=== PATIENT | male | born 1970 | race Caucasian/White ===

== ENCOUNTER 2017-05-14 14:52 | Observation (INO) | payer OTHER ==
[~2017-05-14] VITALS: Ht 182.9 cm; Wt 114.8 kg
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
--- NOTE | ~2017-05-14 | ESTC ---
Cardiac Perfusion Imaging Demographics Patient Name GWEN Gaytan Gender Male Patient Number [id number] Race Visit Number [id number] Ethnicity Corporate ID Room Number G6308 Accession Number [id number] Height 72 inches Date of 1970 Weight 253 pounds Interpreting David Hernandez Date of study 05/15/2017 Physician Supervising /SAMRAP David Hernandez NM Technologist Ileana Read MD Ordering Physician Stress design technician Stress ECG Reading David Hernandez Nurse Clifford Long RN Physician The procedure was explained in detail to the patient. Risks, complications and alternative treatments were reviewed. Written consent was obtained. Medications Reviewed with Patient prior to Procedure. Procedure Procedure Type: Nuclear Stress Test:Exercise, Cardiolite Stress Test Procedure Start time: 05/15/2017 00:00 Indications: Chest pain. Conclusions Summary DTS : 9.4 (Low risk). Normal perfusion imaging. LVEF : 74% Normal WM. Stress Protocols Resting ECG RSR. PVCs. Pre-stress physical exam: Un changed. Predicted HR: 174 bpm ECG Findings No ECG changes suggestive of ischemia. Arrhythmias No new rhythm abnormality. Symptoms No chest pain Back of left upper arm pail felt to be due to the patient holding to the TM very tight.(Does not like treadmills) Stress Interpretation Duration: 9:36 mins. Achieved: 89% MPHR. DP: 24 K. METs: 10.9 No chest pain. Reason for termination: Fatigue and SOB. EKG: No ischemia. No new arrythmias. DTS: 9.4 (Low risk). Imaging Results High risk findings Summed scores - Summed stress score: 12 - Summed rest score: 14 - Summed difference score: -2 Stress ejection Ejection fraction:74 % EDV :76 ml ESV :20 ml Stroke volume :56 ml LV mass :128 gr LV size:Normal Normal LV function Imaging Protocols Rest Stress Isotope:Tc99m Sestamibi IV Isotope: Tc99m Sestamibi IV Isotope dose:15.1 mCi Isotope dose:47.4 mCi Date:05/15/2017 07:30 Date:05/15/2017 09:05 Technique: SPECT Technique: Gated Supine SPECT Supine IV remains in place after procedure. Scan Time:45-60 minutes post Scan Time:45-60 minutes post injection injection Medical History Admission Data Admission date: 05/14/2017 Admission Time: 17:34 Hospital Status: Inpatient. Signatures dtt: Mary Hernandez dtd: 05/15/17 0000 Physician Self Edit
--- NOTE | ~2017-05-14 | ER ---
[facility] 47 Y [address] ROOM: [place] [address] LOCATION: GPCU ADMIT DATE: 05/14/2017 ER/Outpatient Report DISCHARGE DATE: FAMILY PHYSICIAN: PHYSICIAN, NO ATTENDING PHYSICIAN: JIMENA JIMENEZ Time of Arrival: 1452 hours. Time of Evaluation: 1456 hours. CHIEF COMPLAINT: Chest pain. HISTORY OF PRESENT ILLNESS: The patient is a 47-year-old male who presents to the emergency department today with a chief complaint of chest pain. He reports this started 6 hours prior to arrival. The patient reports he had an episode yesterday, it kind of went away on its own, it then came back today. He reports it is a dull type pain in his lower chest, no radiation. No shortness of breath. No diaphoresis. No nausea or vomiting. He reports it is currently 2/10 in severity. PAST MEDICAL HISTORY: Kidney stones. PAST SURGICAL HISTORY: Kidney stones. SOCIAL HISTORY: The patient does use chewing tobacco. Denies any smoking. Denies any alcohol or illicit drug use. ALLERGIES: NO KNOWN DRUG ALLERGIES. MEDICATIONS: None. PRIMARY CARE DOCTOR: None. REVIEW OF SYSTEMS: All systems are reviewed by myself and are negative with the exception of those discussed in HPI and past medical history. PHYSICAL EXAMINATION: [facility]GE: 47 Y [address] ROOM: [place] [address] LOCATION: GPCU ADMIT DATE: 05/14/2017 ER/Outpatient Report DISCHARGE DATE: FAMILY PHYSICIAN: PHYSICIAN, GABBY ATTENDING PHYSICIAN: JIMENA JIMENEZ VITAL SIGNS: Weight 116 kg, blood pressure 163/108, pulse 88, respiratory rate 16, temperature 98.8, and oxygen saturation 96% on room air. GENERAL: The patient is a 47-year-old male, appears stated age, in no acute distress. HEENT: Normocephalic, atraumatic. Pupils are equal, round, and reactive to light. NECK: Supple. There is no nuchal rigidity. CARDIOVASCULAR: Regular rate and rhythm. No murmurs, rubs, or gallops. LUNGS: Clear to auscultation bilaterally. No wheezes, rales, or rhonchi. ABDOMEN: Soft, nontender, and nondistended. No rebound, rigidity, or guarding. MUSCULOSKELETAL: The patient moves all 4 extremities. SKIN: Warm and dry. There are no rashes or lesions noted. LABORATORY DATA AND X-RAYS: EKG is obtained, interpreted by myself at 1517 hours shows sinus rhythm with a rate of 82, normal axis, normal interval. No ST elevation, ST depression, or T-wave inversions. D-dimer is normal. CBC is normal. Coags are normal. ProBNP is normal. CMP is normal. LFTs normal. Magnesium is normal. CK is normal. Troponin is normal. Chest x-ray shows no acute process. A repeat 2- hour EKG is obtained and is interpreted by myself at 1710 hours shows sinus rhythm with a rate of 66, normal axis, normal interval. No ST elevation, ST depression, or T-wave inversions. Positive PVCs. Repeat 2-hour cardiac enzymes are normal. IMPRESSION: 1. Chest pain, rule out acute coronary syndrome. 2. Initial visit. EMERGENCY DEPARTMENT COURSE: The patient brought back to the examination room. Seen and evaluated by myself. IV is established. Laboratory analysis and imaging are obtained as described above. The patient is given 4 baby aspirins orally. He is given sublingual nitroglycerin with resolution of the patient's pain. As we were awaiting the 2-hour cardiac enzymes, the pain returned and his monitor is unchanged. He is given another sublingual nitroglycerin, which does once again resolved the patient's pain. I have discussed results with the patient. With his significant improvement of the chest pain with nitroglycerin, I did recommend admission to the hospital for observation for further evaluation, treatment, and management. The patient is agreeable. I have contacted Dr. Jimenez who does agree to accept the patient for further evaluation, treatment, and management. DISPOSITION: The patient is admitted under the care of the Hospitalist Service in stable PATIENT'S NAME: RISA HIDALGO [facility] AGE: 47 Y [address] ROOM: [address] [place], [place] [address] [facility] ADMIT DATE: 05/14/2017 ER/Outpatient Report DISCHARGE DATE: FAMILY PHYSICIAN: PHYSICIAN, NO ATTENDING PHYSICIAN: JIMENA JIMENEZ condition. DO CABRERA BOWENS/brigitte /[id number] d: 05/14/17 2317 t: 05/15/17 0845, OUTPATIENT REPORT
--- NOTE | ~2017-05-14 | ECHO ---
Transthoracic Echocardiography Report (TTE) Demographics Patient Name RISA HIDALGO Date of Study 05/15/2017 Patient Number [id number] Visit Number [id number] Date of 1970 Room Number G6308 Gender Male Number Age 47 year(s) Referring Manager Nursing Reyes FISHERT, RDCS Physician Adelia Physician Interpreting David Hernandez MD Wash Oil Pump Operator Helper Physician Supervising Ordering Barbara Ron CRNA, MD/SAMRAP Physician Nurse Stress Lockstitch Lining Maker Conclusions Contractility Score Summary Normal Left Ventricular contractility was noted. Summary The estimated left ventricular ejection fraction is 60-65% with normal internal dimensions,wall thickness and WM. The right ventricle appears thickened. Procedure Type of Study TTE procedure:2D Echocardiogram, M-Mode, Doppler , Color Doppler. Procedure Date Date: 05/15/2017 Start: 11:18 AM Study Location: Inpatient Portable Technical Quality: Adequate visualization Indications:Chest pain. Appropriate Use Criteria: 9 Patient Status: Routine HR: 70 bpm BP: 156/79 mmHg M-Mode/2D Measurements LV Diastolic Dimension: 4.73 cm LV Systolic Dimension: 2.93 cm LV Septum Diastolic: 0.94 cm LV PW Diastolic: 0.91 cm AO Root Dimension: 2.7 cm Cardiac Output: 4 l/min AV Cusp Separation: 2.1 cm RV Diastolic Dimension: 2.89 cm LA volume: 24 ml LVOT: 2 cm RV Base: 3.16 cm LVOT VTI: 18.2 cm RV Mid: 3.07 cm LV Stroke volume: 57.15 ml TAPSE: 3.05 cm TDI-S': 20.8 cm/s Doppler Measurements AV Peak Velocity: 1.16 m/s MV Peak E-Wave: 0.67 m/s AV Peak Gradient: 5.38 mmHg MV Peak A-Wave: 0.78 m/s AV Mean Gradient: 4 mmHg MV E/A Ratio: 0.85 LVOT Peak Velocity: 0.81 m/s MV P1/2t: 49 msec PV Peak Velocity: 0.76 m/s E' Septal Velocity: 0.08 m/s PV Peak Gradient: 2.33 mmHg E' Lateral Velocity: 0.09 m/s A' Septal Velocity: 0.11 m/s A' Lateral Velocity: 0.16 m/s Findings Left Ventricle Normal left ventricle size and function. Diastolic assessment reveals Grade I diastolic dysfunction. Right Ventricle The right ventricle appears thickened. Left Atrium Normal left atrial size. Right Atrium Normal right atrial size. Mitral Valve Normal mitral valve structure and function. Aortic Valve Normal aortic valve structure and function. Tricuspid Valve Trivial tricuspid regurgitation by color Doppler. Pulmonic Valve Normal pulmonic valve structure and function. Pericardial Effusion No evidence of pericardial effusion. Pleural Effusion No evidence of pleural effusion. Contractility Score LV regional wall motion:(0-Non visualized 1-Normal 2-Hypokinesis 3-Akinesis 4-Dyskinesis 5-Aneurysm) Signature dtt: Mary Hernandez dtd: 05/15/17 1118 Physician Self Edit
--- NOTE | ~2017-05-14 | OR ---
[facility] 47 Y [address] ROOM: [place] [address] LOCATION: GPCU ADMIT DATE: 05/14/2017 OR/Procedure Report DISCHARGE DATE: 05/16/2017 FAMILY PHYSICIAN: PHYSICIAN, NO ATTENDING PHYSICIAN: Asaf Jimenez SURGEON: Soniya Nayak MD MECHANICAL AND AUTO BODY CAR CHECKER: DATE OF PROCEDURE: 05/15/2017 PROCEDURE PERFORMED: Coronary artery CT angiogram. INDICATION: The patient had come in with left inframammary chest pain. His stress test was low risk and also had no perfusion abnormalities. After his stress test, he continued to have chest pains in the inframammary area. He then was evaluated with a CT coronary angiography. FINDINGS: The CT angiogram after calcium scoring was done showed no contrast in his coronaries and somehow probably the timing was such that we did not get the coronary angiogram done. His calcium score is 0. Based on all of the available evidence in his case at this time it was decided not to do a repeat CT scan or do cardiac catheterization, especially because he does not have his chest pain anymore. We will try to treat his blood pressure aggressively and follow him up as an outpatient. Using a 64-slice scanner, coronary artery calcium scoring was initially done. A 3D workstation was utilized to calculate the calcium score. 1. Left main: 0. 2. LAD: 0. 3. Left circumflex: 0. 4. RCA: 0. 5. Total: 0. His calcium score is 0. As mentioned above, coronary CT angiogram was attempted and he had infusion of the iodinated contrast material, but when scanned, there was no contrast in his coronaries. SONIYA NAYAK MD AMK/modl [facility]GE: 47 Y [address] ROOM: [place] [address] LOCATION: GPCU ADMIT DATE: 05/14/2017 OR/Procedure Report DISCHARGE DATE: 05/16/2017 FAMILY PHYSICIAN: GABBY TIRADO ATTENDING PHYSICIAN: Asaf Jimenez /[id number] d: 05/16/178 t: 06/01/17 1726, OPERATIVE SUMMARY
--- NOTE | ~2017-05-14 | PUL ---
PATIENT'S NAME: RISA HIDALGO [facility] AGE: 47 Y [address] ROOM: [address] [address] LOCATION: GPCU ADMIT DATE: 05/14/2017 Pulmonary DISCHARGE DATE: 05/16/2017 FAMILY PHYSICIAN: PHYSICIAN, NO ATTENDING PHYSICIAN: Asaf Jimenez NAME OF PROCEDURE: Overnight Pulse Oximetry DATE OF PROCEDURE: May 15, 2017 REASON FOR EXAM: Nocturnal hypoxemia RESULTS: The test was performed on room air. The recording time was 9 hours, 3 minutes, and 12 seconds, with a total valid sampling time of 8 hours, 53 minutes, and 52 seconds. The highest pulse noted was 90, lowest pulse was 44, mean pulse was 59. The highest SpO2 was 99%, lowest SpO2 was 86%, with a mean SpO2 of 94%. There was no significant nocturnal desaturation. The desaturation event index was 2.9. PHYSICIAN INTERPRETATION: The patient does not have evidence of significant nocturnal hypoxemia. MD KORTNEY MILLER/ronal /[id number] dtt: 05/19/17 1731 GIOVANNI MEENAKSHI dtd: 05/18/17 1305
--- NOTE | ~2017-05-14 | HP ---
PATIENT'S NAME: RISA HIDALGO [facility] AGE: 47 Y [address] ROOM: [place] [address] LOCATION: GPCU ADMIT DATE: 05/14/2017 History & Physical DISCHARGE DATE: FAMILY PHYSICIAN: PHYSICIAN, NO ATTENDING PHYSICIAN: JIMENA GILL DATE OF SERVICE: 05/14/2017 CHIEF COMPLAINT: Chest pain. HISTORY OF PRESENT ILLNESS: This is a very pleasant 47-year-old male with relatively benign medical history aside from kidney stones, who presents with chest pain which has been intermittent since yesterday, occasionally associated with exertion, with also associated nausea. The patient denies any significant other lightheadedness, dizziness, palpitations, shortness of breath, diaphoresis, radiation of pain to jaw or arm. He has, otherwise, felt well in general as of late. Upon arrival to the emergency department, EKG was without significant changes concerning for ischemia. The patient was placed on telemetry and was given a sublingual tab of nitroglycerin which alleviated his pain entirely. Troponins on the first two sets have been negative and pain was much improved and considering discharge home; however, the patient then developed a recurrent episode of similar chest pain. Again, this was abated nearly entirely by nitroglycerin. Hospitalist Service has been called to admit the patient for ongoing cardiac monitoring and possible stress test to further evaluate. PAST MEDICAL HISTORY: Kidney stones; tobacco dependence, the patient uses chewing tobacco. SURGICAL HISTORY: Right knee surgery. FAMILY HISTORY: The patient is adopted and does not know his family history. SOCIAL HISTORY: The patient is and denies significant smoking history or alcohol use, does chew tobacco regularly. ALLERGIES: QUESTIONABLE HISTORY OF A MORPHINE ALLERGY, HE SAYS HE JUST FELT "OFF" WITH THIS. MEDICATIONS: PATIENT'S NAME: RISA HIDALGO [facility] AGE: 47 Y [address] ROOM: [place] [address] LOCATION: GPCU ADMIT DATE: 05/14/2017 History & Physical DISCHARGE DATE: FAMILY PHYSICIAN: PHYSICIAN, NO ATTENDING PHYSICIAN: JIMENA GILL Occasional ibuprofen, but otherwise no chronic medications. REVIEW OF SYSTEMS: Complete review of systems was performed and negative except as noted above in HPI. PHYSICAL EXAMINATION: VITAL SIGNS: Temp 98.8, pulse 88, blood pressure 163/108, sats 96% on room air. GENERAL: The patient is alert, in no acute distress, lying comfortably in bed. HEENT: Head; normocephalic, atraumatic. Eyes; pupils equal, round, and reactive to light. Extraocular muscles intact. No conjunctival injection or scleral icterus. ENT; mucous membranes are moist. No nasal discharge. NECK: Supple. No lymphadenopathy. No thyromegaly. No JVD. CARDIOVASCULAR: Regular rate and rhythm with frequent premature beats with compensatory pause noted on tele and during auscultation, no murmurs appreciated. Pulses are 2+ bilaterally including radial and dorsalis pedis. LUNGS: Respirations are clear to auscultation bilaterally with normal effort. Saturating well on room air. ABDOMEN: Soft, nontender, nondistended. Normoactive bowel sounds. EXTREMITIES: Without edema bilaterally and no skin changes noted. NEUROLOGIC: The patient is alert and oriented. Moving extremities spontaneously without focal deficits. PSYCHIATRIC: Normal mood and affect. LABS AND IMAGING: CBC with white count 8.2, hemoglobin 15.2, platelets 209. CMP sample was noted to be mildly hemolyzed, but lab numbers notable for sodium 140, potassium 4.0, chloride 108, bicarb 24, BUN 12, creatinine 1.1, calcium 8.5, magnesium is 2.2. LFTs are unremarkable. Troponin negative as less than 0.04. D-dimer is negative. EKG shows PVCs, otherwise, without ischemic changes. Chest x-ray is benign. ASSESSMENT: 1. Chest pain, concern for cardiac etiology. 2. Hypertension. 3. Tobacco dependence. PLAN: We will admit to observation status and complete trend of cardiac enzymes. May consider transthoracic echo going forward, though will more likely warrant exercise stress test in the morning. We will hold off on echocardiogram at this point in time. The patient is a full code. We will give Lovenox for DVT PATIENT'S NAME: RISA HIDALGO [facility] AGE: 47 Y [address] ROOM: [address] [address] LOCATION: GPCU ADMIT DATE: 05/14/2017 History & Physical DISCHARGE DATE: FAMILY PHYSICIAN: PHYSICIAN, NO ATTENDING PHYSICIAN: JIMENA GILL. I spent 25 minutes on date of admission including direct [id number] evaluation and review of records on Risa Hidalgo. MD KAREN RUCKER/brigitte /[id number] D: [id number] T: [id number] HISTORY & PHYSICAL
--- NOTE | ~2017-05-14 | DS ---
PATIENT'S NAME: RISA HIDALGO [facility] AGE: 47 Y [address] ROOM: [place] [address] LOCATION: GPCU ADMIT DATE: 05/14/2017 Discharge Summary DISCHARGE DATE: 05/16/2017 FAMILY PHYSICIAN: PHYSICIAN, NO ATTENDING PHYSICIAN: Asaf Jimenez DISCHARGE DIAGNOSES: 1. Chest pain, apparently noncardiac. 2. Reflux by history. 3. Obesity. 4. Tobacco abuse, he chews tobacco. PROCEDURES: He had a stress test, which was negative. He was supposed to have CT angiography today, but that failed, so given his calcium score was negative, and all his enzymes were negative and his stress test was benign. Dr. Hernandez felt he could go today. Reference was made to my note today for physical exam. He will be sent out on omeprazole 20 mg one p.o. q.a.m. one half hour a.c.. We are going to give him a 2-week trial to see if he has any chest pain during that time. If he does not, he can use that medicine just p.r.n. any time he is having heartburn. If he has marked problems with chest pain in the future, he has to follow up with Dr. Hernandez, and he actually has a 2-week follow up scheduled with Dr. Hernandez. He has to monitor his blood pressure at home. Diet should be low fat. Activity ad leonid. We did recommend tobacco cessation. Dr. Hernandez did recommend aspirin 81 mg p.o. daily and bisoprolol 5 mg p.o. daily. DISCHARGE MEDICATIONS: Aspirin 81 mg p.o. daily and bisoprolol 5 mg p.o. daily. Discharge time was > 30 minutes. MD AJ OTT/brigitte /[id number] d: 05/17/17 1346 t: 05/20/17 1742, DISCHARGE SUMMARY
[~2017-05-14 14:52] MED LIST: HYDROCODON-ACE1 EAC4 PO; TYLENOL/COD#31 TAB PO
[2017-05-14 15:25] LABS: BASOPHIL % 0.4 %; EOSINOPHIL # 0.2 K/uL (0.0-0.5); EOSINOPHIL % 2.7 %; HEMATOCRIT 43.1 % (37.0-53.0); HEMOGLOBIN 15.2 g/dL (12.0-17.0); IMMATURE GRANULOCYTE % 0.1 %; LYMPHOCYTE # 2.2 K/uL (0.8-4.0); LYMPHOCYTE % 27.2 %; MCH 29.7 pg (27.0-34.0); MCHC 35.3 gm/dL (32.0-36.5); MCV 84.2 fl (83.0-98.0); MONOCYTE # 0.5 K/uL (0.0-1.0); MONOCYTE % 5.5 %; MPV 9.4 fl (9.4-12.4); NEUTROPHIL # (ANC) 5.2 K/uL (1.4-9.0); NEUTROPHIL % 64.1 %; NRBC % 0 /100WBC (0-0.00); PLATELET COUNT 209 K/uL (150-450); RBC 5.12 M/uL (4.00-6.00); RDW-CV 12.6 % (11.9-14.6); WBC 8.2 K/uL (4.0-11.0)
[2017-05-14 15:34] LABS: INR - (THERAPEUTIC) 0.98 (0.92-1.07); PROTIME 10.3 SECONDS (9.8-11.4); PTT 27 SECONDS (25-32)
[2017-05-14 15:46] LABS: ALBUMIN 3.8 gm/dL (3.5-5.0); ALK PHOS 66 IU/L (33-138); ALT 44 IU/L (12-78); BLOOD UREA NITROGEN 12 mg/dL (6-24); CALCIUM 8.5 mg/dL (8.5-10.5); CHLORIDE 108 mMol/L (96-110); CO2 24 mMol/L (22-32); CPK 209 IU/L (35-332); CREATININE 1.1 mg/dL (0.6-1.3); SODIUM 140 mMol/L (135-145); TOTAL BILIRUBIN 0.6 mg/dL (0.0-1.5); TOTAL PROTEIN 7.5 g/dL (6.0-8.4)
[2017-05-14 15:47] LABS: AST 36 IU/L (10-40); MAGNESIUM 2.2 mg/dL (1.8-2.6)
[2017-05-14 17:21] LABS: CPK 177 IU/L (35-332)
[2017-05-14 20:18] LABS: BILIRUBIN URINE NEGATIVE (NEGATIVE); BLOOD URINE 10 /UL (NEGATIVE); COLOR URINE YELLOW (YELLOW); GLUCOSE URINE NEGATIVE (NEGATIVE); KETONE URINE NEGATIVE (NEGATIVE); LEUKOCYTES URINE NEGATIVE /UL (NEGATIVE); NITRITE URINE NEGATIVE (NEGATIVE); PROTEIN URINE NEGATIVE (NEGATIVE); TURBIDITY URINE CLEAR (CLEAR); UROBILINOGEN URINE NORMAL (NORMAL)
[2017-05-14 20:26] LABS: BACTERIA URINE NEGATIVE (NEGATIVE); EPITHELIAL URINE NEGATIVE #/HPF (NEGATIVE); WBC URINE 0-2 #/HPF (NEGATIVE)
[2017-05-14 21:35] LABS: CPK 154 IU/L (35-332)
[2017-05-15 03:36] LABS: CPK 133 IU/L (35-332)
[2017-05-15 10:29] LABS: CPK 127 IU/L (35-332)
[2017-05-15 11:01] LABS: ANION GAP 13.4 (10.0-19.0); CALCIUM 8.6 mg/dL (8.5-10.5); CREATININE 1.1 mg/dL (0.6-1.3); MAGNESIUM 2.2 mg/dL (1.8-2.6); POTASSIUM 4.4 mMol/L (3.7-5.1)
[2017-05-16] MEDS ORDERED: PRILOSEC20 MG PO (17:20)
[2017-05-16] MEDS ORDERED: ASPIRIN LO-DOSE81 MG PO (17:21)
[2017-05-16] MEDS ORDERED: ZEBETA5 MG PO (17:21)
== END 2017-05-16 17:45 | disposition disaster alternative care site (69) ==
LOC: GMED 14:52 → GPCU 17:34
PROVIDERS: Physician Assistant Medical; ADMIT Internal Medicine
DX: R07.89 Other chest pain (principal); I10 Essential (primary) hypertension; K76.0 Fatty (change of) liver, not elsewhere classified; K21.9 Gastro-esophageal reflux disease without esophagitis; F17.220 Nicotine dependence, chewing tobacco, uncomplicated; E66.9 Obesity, unspecified; Z68.34 Body mass index [BMI] 34.0-34.9, adult; Z87.442 Personal history of urinary calculi; Z98.890 Other specified postprocedural states
CPT/HCPCS: A9270; A9500; J1650; J7030